=== PATIENT | female | born 1955 | race Two or more races ===

== ENCOUNTER 2020-08-12 11:47 | Emergency (ER) | payer OTHER ==
[~2020-08-12] VITALS: Ht 160 cm; Wt 60.8 kg
[2020-08-12] MEDS ORDERED: CLEOCIN HCL300 MG PO (17:16)
[2020-08-12] MEDS ORDERED: INTESTINEX680 M1 PO (17:16)
[2020-08-18] MEDS ORDERED: NEOSPORIN OIN28.3 GM (12:29)
== END 2020-08-12 17:48 | disposition home or self-care (01) ==
LOC: ER 11:47
DX: S90.414A Abrasion, right lesser toe(s), initial encounter (principal); L02.611 Cutaneous abscess of right foot; R07.89 Other chest pain; B95.61 Methicillin susceptible Staphylococcus aureus infection as the cause of diseases classified elsewhere; B96.89 Other specified bacterial agents as the cause of diseases classified elsewhere; W57.XXXA Bitten or stung by nonvenomous insect and other nonvenomous arthropods, initial encounter; Y93.89 Activity, other specified; Y92.89 Other specified places as the place of occurrence of the external cause; Y99.8 Other external cause status

== ENCOUNTER 2020-09-04 09:07 | Emergency (ER) | payer OTHER ==
[~2020-09-04] VITALS: Ht 160 cm; Wt 61.2 kg
[~2020-09-04 09:07] MED LIST: CLEOCIN HCL300 MG PO; INTESTINEX680 M1 PO; NEOSPORIN OIN28.3 GM
== END 2020-09-04 12:06 | disposition home or self-care (01) ==
LOC: ER 09:07
DX: L84 Corns and callosities (principal); M79.674 Pain in right toe(s)

== ENCOUNTER 2020-09-09 05:48 | Emergency (ER) | payer OTHER ==
[~2020-09-09] VITALS: Ht 160 cm; Wt 61.2 kg
== END 2020-09-09 09:30 | disposition home or self-care (01) ==
LOC: ER 05:48
DX: R19.7 Diarrhea, unspecified (principal)

== ENCOUNTER 2020-09-12 18:07 | Emergency (ER) | payer OTHER ==
[~2020-09-12] VITALS: Ht 160 cm; Wt 61.2 kg
[2020-10-23] MEDS ORDERED: VISTARIL50 MG PO (18:36)
[2020-10-23] MEDS ORDERED: MAPAP22.4 MG/0. (18:41)
[2020-10-23] MEDS ORDERED: ACETAMINOPHEN650 M2 (18:42)
== END 2020-09-12 22:01 | disposition home or self-care (01) ==
LOC: ER 18:07
DX: S00.31XA Abrasion of nose, initial encounter (principal); R06.02 Shortness of breath; W45.8XXA Other foreign body or object entering through skin, initial encounter; Y93.89 Activity, other specified; Y92.89 Other specified places as the place of occurrence of the external cause; Y99.8 Other external cause status

== ENCOUNTER 2020-09-16 08:07 | Emergency (ER) | payer OTHER ==
[~2020-09-16] VITALS: Ht 160 cm; Wt 61.2 kg
[2020-09-16] MEDS ORDERED: ALL DAY ALLERGY10 M3 PO (08:17)
[2020-10-23] MEDS ORDERED: VISTARIL50 MG PO (18:36)
[2020-10-23] MEDS ORDERED: MAPAP22.4 MG/0. (18:41)
[2020-10-23] MEDS ORDERED: ACETAMINOPHEN650 M2 (18:42)
[2020-11-13] MEDS ORDERED: VISTARIL50 MG (20:47)
[2020-12-28] MEDS ORDERED: ALLER-TEC10 MG PO (13:56)
== END 2020-09-16 10:48 | disposition home or self-care (01) ==
LOC: ER 08:07
DX: L29.8 Other pruritus (principal); J34.89 Other specified disorders of nose and nasal sinuses; T78.49XA Other allergy, initial encounter

== ENCOUNTER 2020-09-19 22:43 | Emergency (ER) | payer OTHER ==
[~2020-09-19] VITALS: Ht 160 cm; Wt 61.2 kg
[~2020-09-19 22:43] MED LIST changes: +ALL DAY ALLERGY10 M3 PO
[2020-10-23] MEDS ORDERED: VISTARIL50 MG PO (18:36)
[2020-10-23] MEDS ORDERED: MAPAP22.4 MG/0. (18:41)
[2020-10-23] MEDS ORDERED: ACETAMINOPHEN650 M2 (18:42)
[2020-11-13] MEDS ORDERED: VISTARIL50 MG (20:47)
[2020-12-28] MEDS ORDERED: ALLER-TEC10 MG PO (13:56)
== END 2020-09-20 01:21 | disposition home or self-care (01) ==
LOC: ER 22:43
DX: R09.81 Nasal congestion (principal); L29.8 Other pruritus; T78.49XA Other allergy, initial encounter; X58.XXXA Exposure to other specified factors, initial encounter

== ENCOUNTER → 2020-10-23 | Emergency (ER) | payer OTHER ==
[~2020-10-23] VITALS: Ht 154.9 cm; Wt 53.5 kg
[~2020-10-23] MED LIST changes: +ACETAMINOPHEN650 M2; +ALLER-TEC10 MG PO; +MAPAP22.4 MG/0.; +METFORMIN HCL500 M3 PO; +NYSTATIN100000 UNI PO; +PEPCID40 MG PO; +VISTARIL50 MG; +VISTARIL50 MG PO; +ZOFRAN4 MG PO
== END | disposition home or self-care (01) ==
LOC: ER 16:12
DX: R06.02 Shortness of breath (principal); F41.0 Panic disorder [episodic paroxysmal anxiety]

== ENCOUNTER 2020-10-26 23:34 | Emergency (ER) | payer OTHER ==
[~2020-10-26] VITALS: Ht 154.9 cm; Wt 54.4 kg
[~2020-10-26 23:34] MED LIST changes: -ALLER-TEC10 MG PO; -METFORMIN HCL500 M3 PO; -NYSTATIN100000 UNI PO; -PEPCID40 MG PO; -VISTARIL50 MG; -ZOFRAN4 MG PO
[2020-11-13] MEDS ORDERED: VISTARIL50 MG (20:47)
[2020-12-28] MEDS ORDERED: ALLER-TEC10 MG PO (13:56)
== END 2020-10-27 | disposition left against medical advice (07) ==
LOC: ER 23:34
DX: Z53.20 Procedure and treatment not carried out because of patient's decision for unspecified reasons (principal)

== ENCOUNTER 2020-10-30 13:26 | Emergency (ER) | payer OTHER ==
[~2020-10-30] VITALS: Ht 160 cm; Wt 53.5 kg
[2020-11-13] MEDS ORDERED: VISTARIL50 MG (20:47)
[2020-12-28] MEDS ORDERED: ALLER-TEC10 MG PO (13:56)
== END 2020-10-30 16:35 | disposition home or self-care (01) ==
LOC: ER 13:26
DX: M79.632 Pain in left forearm (principal)

== ENCOUNTER 2020-11-01 23:37 | Emergency (ER) | payer OTHER ==
[~2020-11-01] VITALS: Ht 162.6 cm; Wt 74.8 kg
[2020-11-13] MEDS ORDERED: VISTARIL50 MG (20:47)
[2020-12-28] MEDS ORDERED: ALLER-TEC10 MG PO (13:56)
== END 2020-11-02 00:44 | disposition home or self-care (01) ==
LOC: ER 23:37
DX: R06.02 Shortness of breath (principal); J45.998 Other asthma

== ENCOUNTER 2020-11-02 20:08 | Emergency (ER) | payer OTHER ==
[~2020-11-02] VITALS: Ht 157.5 cm; Wt 61.2 kg
[2020-11-13] MEDS ORDERED: VISTARIL50 MG (20:47)
[2020-12-28] MEDS ORDERED: ALLER-TEC10 MG PO (13:56)
== END 2020-11-02 21:51 | disposition home or self-care (01) ==
LOC: ER 20:08
DX: R06.02 Shortness of breath (principal); F41.0 Panic disorder [episodic paroxysmal anxiety]

== ENCOUNTER → 2020-11-06 | Emergency (ER) | payer OTHER ==
[~2020-11-06] VITALS: Ht 160 cm; Wt 53.5 kg
[~2020-11-06] MED LIST changes: +ALLER-TEC10 MG PO; +METFORMIN HCL500 M3 PO; +NYSTATIN100000 UNI PO; +PEPCID40 MG PO; +VISTARIL50 MG; +ZOFRAN4 MG PO
== END | disposition home or self-care (01) ==
LOC: ER 12:10
DX: K14.1 Geographic tongue (principal); K30 Functional dyspepsia

== ENCOUNTER → 2020-11-13 | Emergency (ER) | payer OTHER ==
[~2020-11-13] VITALS: Ht 160 cm; Wt 53.5 kg
== END | disposition home or self-care (01) ==
LOC: ER 20:03
DX: R68.2 Dry mouth, unspecified (principal)

== ENCOUNTER 2020-11-15 19:27 | Emergency (ER) | payer OTHER ==
[~2020-11-15] VITALS: Ht 160 cm; Wt 53.5 kg
[~2020-11-15 19:27] MED LIST changes: -ALLER-TEC10 MG PO; -METFORMIN HCL500 M3 PO; -NYSTATIN100000 UNI PO; -PEPCID40 MG PO; -ZOFRAN4 MG PO
[2020-12-28] MEDS ORDERED: ALLER-TEC10 MG PO (13:56)
== END 2020-11-16 00:48 | disposition home or self-care (01) ==
LOC: ER 19:27 → CPU-OBS 19:31 → ER 19:31
DX: R07.89 Other chest pain (principal); R14.3 Flatulence

== ENCOUNTER 2020-11-18 19:21 | Emergency (ER) | payer OTHER ==
[~2020-11-18] VITALS: Ht 154.9 cm; Wt 54.4 kg
[2020-12-28] MEDS ORDERED: ALLER-TEC10 MG PO (13:56)
== END 2020-11-18 22:42 | disposition home or self-care (01) ==
LOC: ER 19:21
DX: M54.2 Cervicalgia (principal)

== ENCOUNTER 2020-11-21 20:18 | Emergency (ER) | payer OTHER ==
[~2020-11-21] VITALS: Ht 157.5 cm; Wt 59.0 kg
[2020-12-28] MEDS ORDERED: ALLER-TEC10 MG PO (13:56)
== END 2020-11-21 22:47 | disposition home or self-care (01) ==
LOC: ER 20:18
DX: R06.02 Shortness of breath (principal); F41.1 Generalized anxiety disorder

== ENCOUNTER 2020-11-23 22:20 | Emergency (ER) | payer OTHER ==
[~2020-11-23] VITALS: Ht 160 cm; Wt 53.5 kg
[2020-11-24] MEDS ORDERED: ZOFRAN4 MG PO (04:19)
[2020-11-24] MEDS ORDERED: PEPCID40 MG PO (04:19)
[2020-12-28] MEDS ORDERED: ALLER-TEC10 MG PO (13:56)
== END 2020-11-24 04:39 | disposition home or self-care (01) ==
LOC: ER 22:20
DX: K52.9 Noninfective gastroenteritis and colitis, unspecified (principal)

== ENCOUNTER 2020-11-27 11:21 | Emergency (ER) | payer OTHER ==
[~2020-11-27] VITALS: Ht 160 cm; Wt 53.5 kg
[~2020-11-27 11:21] MED LIST changes: +PEPCID40 MG PO; +ZOFRAN4 MG PO
[2020-12-28] MEDS ORDERED: ALLER-TEC10 MG PO (13:56)
== END 2020-11-27 13:30 | disposition home or self-care (01) ==
LOC: ER 11:21
DX: A08.8 Other specified intestinal infections (principal)

== ENCOUNTER 2020-11-30 22:02 | Emergency (ER) | payer OTHER ==
[~2020-11-30] VITALS: Ht 160 cm; Wt 53.5 kg
[2020-12-01] MEDS ORDERED: METFORMIN HCL500 M3 PO (01:00)
[2020-12-28] MEDS ORDERED: ALLER-TEC10 MG PO (13:56)
== END 2020-12-01 01:17 ==
LOC: ER 22:02
DX: E11.65 Type 2 diabetes mellitus with hyperglycemia (principal); R42 Dizziness and giddiness

== ENCOUNTER 2020-12-07 20:14 | Emergency (ER) | payer OTHER ==
[~2020-12-07] VITALS: Ht 160 cm; Wt 53.5 kg
[~2020-12-07 20:14] MED LIST changes: +METFORMIN HCL500 M3 PO
[2020-12-28] MEDS ORDERED: ALLER-TEC10 MG PO (13:56)
== END 2020-12-07 21:18 | disposition home or self-care (01) ==
LOC: ER 20:14
DX: R09.81 Nasal congestion (principal)

== ENCOUNTER 2020-12-08 22:09 | Emergency (ER) | payer OTHER ==
[~2020-12-08] VITALS: Ht 160 cm; Wt 61.2 kg
[2020-12-28] MEDS ORDERED: ALLER-TEC10 MG PO (13:56)
== END 2020-12-08 22:44 | disposition home or self-care (01) ==
LOC: ER 22:09
DX: R53.81 Other malaise (principal); F41.8 Other specified anxiety disorders

== ENCOUNTER 2020-12-12 19:46 | Emergency (ER) | payer OTHER ==
[~2020-12-12] VITALS: Ht 160 cm; Wt 53.5 kg
[2020-12-28] MEDS ORDERED: ALLER-TEC10 MG PO (13:56)
== END 2020-12-12 22:59 | disposition home or self-care (01) ==
LOC: ER 19:46
DX: R09.81 Nasal congestion (principal); F06.4 Anxiety disorder due to known physiological condition

== ENCOUNTER 2020-12-15 19:12 | Emergency (ER) | payer OTHER ==
[~2020-12-15] VITALS: Ht 160 cm; Wt 53.5 kg
[2020-12-15] MEDS ORDERED: NYSTATIN100000 UNI PO (22:23)
[2020-12-28] MEDS ORDERED: ALLER-TEC10 MG PO (13:56)
== END 2020-12-15 22:29 | disposition home or self-care (01) ==
LOC: ER 19:12
DX: J31.2 Chronic pharyngitis (principal); B37.0 Candidal stomatitis

== ENCOUNTER 2020-12-18 15:44 | Emergency (ER) | payer OTHER ==
[~2020-12-18] VITALS: Ht 160 cm; Wt 53.5 kg
[~2020-12-18 15:44] MED LIST changes: +NYSTATIN100000 UNI PO
[2020-12-19] MEDS ORDERED: VISTARIL50 MG (08:43)
[2020-12-28] MEDS ORDERED: ALLER-TEC10 MG PO (13:56)
== END 2020-12-18 20:14 | disposition home or self-care (01) ==
LOC: ER 15:44
DX: E11.65 Type 2 diabetes mellitus with hyperglycemia (principal)

== ENCOUNTER 2020-12-19 08:23 | Emergency (ER) | payer OTHER ==
[~2020-12-19] VITALS: Ht 160 cm; Wt 53.5 kg
[2020-12-19] MEDS ORDERED: VISTARIL50 MG (08:43)
[2020-12-28] MEDS ORDERED: ALLER-TEC10 MG PO (13:56)
== END 2020-12-19 13:40 ==
LOC: ER 08:23
DX: E11.65 Type 2 diabetes mellitus with hyperglycemia (principal); Z20.822 Contact with and (suspected) exposure to COVID-19

== ENCOUNTER → 2020-12-28 | Emergency (ER) | payer OTHER ==
[~2020-12-28] VITALS: Ht 160 cm; Wt 53.5 kg
[~2020-12-28] MED LIST changes: +ALLER-TEC10 MG PO
== END | disposition left against medical advice (07) ==
LOC: ER 13:43
DX: E11.65 Type 2 diabetes mellitus with hyperglycemia (principal)

== ENCOUNTER → 2021-01-01 | Emergency (ER) | payer OTHER ==
[~2021-01-01] VITALS: Ht 157.5 cm; Wt 53.5 kg
[~2021-01-01] MED LIST changes: +FLONASE ALLERG9.9 ML NASAL
== END | disposition left against medical advice (07) ==
LOC: ER 13:40
DX: Z53.20 Procedure and treatment not carried out because of patient's decision for unspecified reasons (principal)

== ENCOUNTER 2021-01-07 03:47 | Emergency (ER) | payer OTHER ==
[~2021-01-07] VITALS: Ht 162.6 cm; Wt 53.5 kg
[~2021-01-07 03:47] MED LIST changes: -FLONASE ALLERG9.9 ML NASAL
== END 2021-01-07 11:05 | disposition home or self-care (01) ==
LOC: ER 03:47
DX: E11.65 Type 2 diabetes mellitus with hyperglycemia (principal); R68.2 Dry mouth, unspecified; Z79.84 Long term (current) use of oral hypoglycemic drugs

== ENCOUNTER 2021-01-09 01:22 | Emergency (ER) | payer OTHER ==
[~2021-01-09] VITALS: Ht 160 cm; Wt 53.5 kg
== END 2021-01-09 06:25 | disposition home or self-care (01) ==
LOC: ER 01:22
DX: E11.649 Type 2 diabetes mellitus with hypoglycemia without coma (principal)

== ENCOUNTER → 2021-01-12 | Emergency (ER) | payer OTHER ==
[~2021-01-12] VITALS: Ht 160 cm; Wt 53.5 kg
[~2021-01-12] MED LIST changes: +FLONASE ALLERG9.9 ML NASAL
== END | disposition left against medical advice (07) ==
LOC: ER 19:48
DX: Z53.20 Procedure and treatment not carried out because of patient's decision for unspecified reasons (principal)

== ENCOUNTER 2021-01-26 23:26 | Emergency (ER) | payer OTHER ==
[~2021-01-26] VITALS: Ht 160 cm; Wt 53.5 kg
[~2021-01-26 23:26] MED LIST changes: +ALBUTEROL; +ALBUTEROL2.5 MG/3 M IH; -FLONASE ALLERG9.9 ML NASAL; +LEVALBUTER1.25 MG/0. IH; +ZYRTEC10 M3; +ZYRTEC10 M3 PO
[2021-01-27] MEDS ORDERED: FLONASE ALLERG9.9 ML NASAL (02:34)
== END 2021-01-27 02:43 | disposition home or self-care (01) ==
LOC: ER 23:26
DX: R09.81 Nasal congestion (principal)

== ENCOUNTER 2021-01-27 22:21 | Emergency (ER) | payer OTHER ==
[~2021-01-27] VITALS: Ht 162.6 cm; Wt 68.0 kg
[~2021-01-27 22:21] MED LIST changes: +FLONASE ALLERG9.9 ML NASAL
== END 2021-01-27 23:01 | disposition home or self-care (01) ==
LOC: ER 22:21
DX: F06.4 Anxiety disorder due to known physiological condition (principal); R06.02 Shortness of breath

== ENCOUNTER 2021-02-05 08:44 | Emergency (ER) | payer OTHER ==
[~2021-02-05] VITALS: Ht 160 cm; Wt 53.5 kg
== END 2021-02-05 10:08 | disposition home or self-care (01) ==
LOC: ER 08:44
DX: K52.9 Noninfective gastroenteritis and colitis, unspecified (principal)

== ENCOUNTER 2021-02-13 03:30 | Emergency (ER) | payer OTHER ==
[~2021-02-13] VITALS: Ht 177.8 cm; Wt 53.5 kg
[2021-02-13] MEDS ORDERED: CEPHALEXIN500 MG PO (05:36)
== END 2021-02-13 05:39 | disposition home or self-care (01) ==
LOC: ER 03:30
DX: J32.8 Other chronic sinusitis (principal)

== ENCOUNTER 2021-02-14 16:50 | Emergency (ER) | payer OTHER ==
[~2021-02-14] VITALS: Ht 160 cm; Wt 53.5 kg
[~2021-02-14 16:50] MED LIST changes: +CEPHALEXIN500 MG PO
== END 2021-02-14 18:28 | disposition home or self-care (01) ==
LOC: ER 16:50
DX: S00.31XA Abrasion of nose, initial encounter (principal); X58.XXXA Exposure to other specified factors, initial encounter; Y93.89 Activity, other specified; Y92.89 Other specified places as the place of occurrence of the external cause; Y99.8 Other external cause status

== ENCOUNTER 2021-02-24 20:44 | Emergency (ER) | payer OTHER ==
[~2021-02-24] VITALS: Ht 160 cm; Wt 53.5 kg
[2021-02-24] MEDS ORDERED: FLONASE ALLERG9.9 ML NASAL (22:38)
== END 2021-02-24 22:42 | disposition home or self-care (01) ==
LOC: ER 20:44
DX: R09.81 Nasal congestion (principal)

== ENCOUNTER 2021-03-10 23:02 | Emergency (ER) | payer OTHER ==
[~2021-03-10] VITALS: Ht 160 cm; Wt 53.5 kg
[2021-03-11] MEDS ORDERED: PEPCID AC20 MG PO (01:29)
[2021-03-11] MEDS ORDERED: LEVSIN0.125 MG PO (01:29)
== END 2021-03-11 01:57 | disposition home or self-care (01) ==
LOC: ER 23:02
DX: K21.9 Gastro-esophageal reflux disease without esophagitis (principal)

== ENCOUNTER 2021-05-06 02:45 | Emergency (ER) | payer OTHER ==
[~2021-05-06] VITALS: Ht 160 cm; Wt 61.2 kg
[~2021-05-06 02:45] MED LIST changes: +LEVSIN0.125 MG PO; +PEPCID AC20 MG PO
[2021-05-06] MEDS ORDERED: BENADRYL ALLERG25 MG PO (03:57)
[2021-05-06] MEDS ORDERED: NAPROXEN375 MG PO (03:57)
== END 2021-05-06 04:11 | disposition home or self-care (01) ==
LOC: ER 02:45
DX: S30.860A Insect bite (nonvenomous) of lower back and pelvis, initial encounter (principal); M53.3 Sacrococcygeal disorders, not elsewhere classified; W57.XXXA Bitten or stung by nonvenomous insect and other nonvenomous arthropods, initial encounter; Y93.89 Activity, other specified; Y92.89 Other specified places as the place of occurrence of the external cause; Y99.8 Other external cause status

== ENCOUNTER 2021-06-07 12:49 | Emergency (ER) | payer OTHER ==
[~2021-06-07] VITALS: Ht 160 cm; Wt 61.2 kg
[~2021-06-07 12:49] MED LIST changes: -MUPIROCIN1 G1 TOP
[2021-06-07] MEDS ORDERED: MUPIROCIN1 G1 TOP (14:52)
== END 2021-06-07 15:55 ==
LOC: ER 12:49
DX: S90.862A Insect bite (nonvenomous), left foot, initial encounter (principal); W57.XXXA Bitten or stung by nonvenomous insect and other nonvenomous arthropods, initial encounter; Y92.9 Unspecified place or not applicable

== ENCOUNTER → 2021-06-07 | Emergency (ER) | payer OTHER ==
[~2021-06-07] VITALS: Ht 160 cm; Wt 61.2 kg
[~2021-06-07] MED LIST changes: +BENADRYL ALLERG25 MG PO; +MUPIROCIN1 G1 TOP; +NAPROXEN375 MG PO
== END | disposition left against medical advice (07) ==
LOC: ER 06:00
DX: Z53.21 Procedure and treatment not carried out due to patient leaving prior to being seen by health care provider (principal)

== ENCOUNTER 2021-06-10 11:07 | Emergency (ER) | payer OTHER ==
[~2021-06-10] VITALS: Ht 160 cm; Wt 61.2 kg
[~2021-06-10 11:07] MED LIST changes: +MUPIROCIN1 G1 TOP
[2021-06-10] MEDS ORDERED: MUPIROCIN1 G1 TOP (13:10)
== END 2021-06-10 13:18 | disposition home or self-care (01) ==
LOC: ER 11:07
DX: S90.862A Insect bite (nonvenomous), left foot, initial encounter (principal); W57.XXXA Bitten or stung by nonvenomous insect and other nonvenomous arthropods, initial encounter; Y92.9 Unspecified place or not applicable

== ENCOUNTER 2021-06-14 14:15 | Emergency (ER) | payer OTHER ==
[~2021-06-14] VITALS: Ht 160 cm; Wt 61.2 kg
== END 2021-06-14 16:55 | disposition home or self-care (01) ==
LOC: ER 14:15
DX: T14.8XXA Other injury of unspecified body region, initial encounter (principal)

== ENCOUNTER 2021-06-27 12:10 | Emergency (ER) | payer OTHER ==
[~2021-06-27] VITALS: Ht 160 cm; Wt 61.2 kg
== END 2021-06-27 14:29 | disposition home or self-care (01) ==
LOC: ER 12:10
DX: S91.359A Open bite, unspecified foot, initial encounter (principal); W57.XXXA Bitten or stung by nonvenomous insect and other nonvenomous arthropods, initial encounter; Y93.9 Activity, unspecified; Y92.9 Unspecified place or not applicable; Z91.018 Allergy to other foods; E11.9 Type 2 diabetes mellitus without complications

== ENCOUNTER 2021-07-06 13:22 | Emergency (ER) | payer OTHER ==
[~2021-07-06] VITALS: Ht 160 cm; Wt 61.2 kg
== END 2021-07-06 16:35 | disposition home or self-care (01) ==
LOC: ER 13:22
DX: J02.9 Acute pharyngitis, unspecified (principal)

== ENCOUNTER 2021-10-20 11:52 | Emergency (ER) | payer OTHER ==
[~2021-10-20] VITALS: Ht 160 cm; Wt 61.2 kg
[2021-10-20] MEDS ORDERED: HYDROXYZIN10 MG/5 ML PO (12:08)
[2021-10-20] MEDS ORDERED: GLIPIZIDE XL10 MG PO (12:08)
== END 2021-10-20 15:19 | disposition home or self-care (01) ==
LOC: ER 11:52
DX: U07.1 COVID-19 (principal); E11.9 Type 2 diabetes mellitus without complications; Z79.84 Long term (current) use of oral hypoglycemic drugs; Z91.018 Allergy to other foods

== ENCOUNTER 2022-01-25 13:06 | Emergency (ER) | payer OTHER ==
[~2022-01-25] VITALS: Ht 160 cm; Wt 68.0 kg
[~2022-01-25 13:06] MED LIST changes: +GLIPIZIDE XL10 MG PO; +HYDROXYZIN10 MG/5 ML PO
== END 2022-01-25 14:38 | disposition home or self-care (01) ==
LOC: ER 13:06
DX: H66.92 Otitis media, unspecified, left ear (principal); E11.9 Type 2 diabetes mellitus without complications

== ENCOUNTER 2024-04-22 10:11 | Outpatient (CLI) | payer OTHER | END 2024-04-22 10:15 | disposition home or self-care (01) | LOC: NUCLEAR 10:11 | PROVIDERS: ATTEND Internal Medicine | DX: I82.622 Acute embolism and thrombosis of deep veins of left upper extremity (principal) ==

== ENCOUNTER 2025-01-14 11:54 | Outpatient (CLI) | payer OTHER | END 2025-01-14 11:59 | disposition home or self-care (01) | LOC: RAD 11:54 | PROVIDERS: ATTEND Internal Medicine Pulmonary Disease | DX: J45.21 Mild intermittent asthma with (acute) exacerbation (principal); T65.2 Toxic effect of tobacco and nicotine; X58.XXXS Exposure to other specified factors, sequela ==